=== PATIENT | male | born 1970 | race Caucasian/White ===

== ENCOUNTER → 2020-11-16 | Outpatient (CLI) | payer OTHER ==
--- NOTE | 2020-11-16 08:46 | RAD ---
EXAM: Right knee, 2 views. HISTORY: Pain. COMPARISON: None. FINDINGS: 2 views of the right knee are obtained. There is medial compartment predominant tricompartm ental spurring. There are suspected patellofemoral compartment joint space narrowing. There is trace joint fluid. There is chondrocalcinosis. There is no fracture, dislocation or subluxation. IMPRESSION: 1. [id number] medial compartment predominant tricompartmental osteoarthritis of the right knee with chondrocalcinosis and trace joint fluid. 2. No acute osseous finding. Electronically signed by: Suzy Mejia MD (11/16/2020 8:44 AM) [id number]
== END ==
LOC: PF 07:48 → EDBD 07:48
PROVIDERS: ATTEND Family Medicine
DX: M17.11 Unilateral primary osteoarthritis, right knee (principal); M11.261 Other chondrocalcinosis, right knee
CPT/HCPCS: 73560; 94010; 94729